=== PATIENT | male | born 1975 | race Caucasian/White ===

== ENCOUNTER 2017-03-01 01:10 | Emergency (ER) | payer MEDICAID, OTHER ==
[~2017-03-01] VITALS: Ht 182.9 cm; Wt 87.0 kg
[2017-03-01 01:14] VITALS: Ht 182.9 cm; Wt 87.0 kg
--- NOTE | 2017-03-01 04:10 | ERD ---
ER Documentation Chief Complaint Date/Time DATE: 03/01/17 TIME: 04:07 Chief Complaint right hand pain- punched the wall HPI 41-year-old male presents in emergency department for complaints of right hand pain after punching a wall tonight. Patient discussed the pain as throbbing pain , 6/10 scale, accompanied with swelling, noted some deformity in the dorsal aspect of the right hand. Patient denies any numbness or tingling. Patient has limitation of movement of the joint because of pain and swelling. Patient did not take any medications for pain. ROS All systems reviewed and are negative except as per history of present illness. Medications Home Meds Reported Medications [none] Unknown Strength No Conflict Check 03/01/17 Allergies Allergies: Coded Allergies: No Known Allergy (Unverified , 03/01/17) PMhx/Soc Medical and Surgical Hx: pt denies Medical Hx History of Surgery: Yes (hernia, appendectomy, liver ) Anesthesia Reaction: No Hx Alcohol Use: No Hx Substance Use: No Hx Tobacco Use: Yes (1/2 ppd) Smoking Status: Current every day smoker FmHx Family History: No coronary disease, No diabetes, No other Physical Exam Vitals Vital Signs Date Time Temp Pulse Resp B/P Pulse Ox O2 Delivery O2 Flow Rate FiO2 03/01/17 01:14 97.8 99 20 136/86 98 Physical Exam GENERAL: The patient is well developed and appropriate for usual state of health, in no apparent distress. CHEST: Clear to auscultation bilaterally. There are no rales, wheezes or rhonchi. HEART: Regular rate and rhythm. No murmurs, clicks, rubs or gallops. No S3 or S4. ABDOMEN: Soft, nontender and nondistended. Good bowel sounds. No rebound or guarding. No gross peritonitis. No gross organomegaly or masses. No Larkin sign or McBurney point tenderness. BACK: No midline or flank tenderness. EXTREMITIES: Tenderness on palpation on the dorsal aspect of the right hand, and swelling noted mostly on the second third and fourth metacarpal aspect. Noted ecchymosis. Limitation of movement of the joint because of the pain and swelling. Equal pulses bilaterally. Full range of motion of other joints of the body. Grossly neurovascularly intact. NEURO: Alert and oriented. Cranial nerves 2-12 intact. Motor strength in all 4 extremities with 5/5 strength. Sensation grossly intact. Normal speech and gait. SKIN: There is no apparent rash or petechia. The skin is warm and dry. HEMATOLOGIC AND LYMPHATIC: There is no evidence of excessive bruising or lymphedema. No gross cervical, axillary, or inguinal lymphadenopathy. Results 24 hrs ROCEDURE: RIGHT HAND - 3 VIEWS CLINICAL INDICATION: 41-year-old male with right hand pain following trauma. TECHNIQUE: AP, lateral and oblique views of the right hand were obtained. The images reviewed on a PACS workstation. COMPARISON: None. FINDINGS: The bones of the hand appear intact, with no evidence of fracture, dislocation, or subluxation. The joint spaces are preserved. Bone mineralization is within normal limits. No radiopaque foreign body is seen. There is a deformity within the mid right second metacarpal bone most likely from prior fracture. IMPRESSION: 1. No acute fracture or dislocation. 2. Old fracture deformity mid right second metacarpal bone. .Dionte Monroe MD, MD Date Time Electronically viewed and signed by .Dionte Monroe MD, on 03/01/2017 06:01 .M/ CC: CHRISSY WOLF NP After receiving patients xray report, an Kip wrap was applied on the patients r hand. After application of the Kip wrap, patient has intact sensation and circulation on distal area of the affected joint. Patient does not complain of numbness or tingling after application of the Kip wrap. Patient tolerated procedure well. Procedures/MDM Medical Decision Making: Patient's pain is most likely consistent with a contusion or a sprain. There is no suspicion for neurovascular compromise. Patient has intact sensation and circulation of the affected extremity. There is low suspicion for septic arthritis. Patient does not have any fever. Radiology exams of the affected area does not show any fracture or dislocation. Disposition: Home. Patient is given prescription for ibuprofen for pain , Tramadol for severe pain. Patient was advised to elevate the affected area and apply ice on affected area. Patient was advised that if symptoms are worse, numbness, tingling, high fever, unable to move joint, worsening symptoms, to return to emergency department immediately. Otherwise, patient is advised to follow up with the primary care doctor in 5-7 days for reevaluation of symptoms. Disclaimer: Inadvertent spelling and grammatical errors are likely due to EHR/ dictation software use and do not reflect on the overall quality of patient care. Also, please note that the electronic time recorded on this note does not necessarily reflect the actual time of the patient encounter. Departure Diagnosis: Primary Impression: Hand contusion Encounter type: initial encounter Laterality: right Qualified Code: S60.221A - Contusion of right hand, initial encounter Condition: Stable Patient Instructions: Contusion, Hand Additional Instructions: Patient is given prescription for ibuprofen for pain ,Tramadol for severe pain. Patient was advised to elevate the affected area and apply ice on affected area. Patient was advised that if symptoms are worse, numbness, tingling, high fever, unable to move joint, worsening symptoms, to return to emergency department immediately. Otherwise, patient is advised to follow up with the primary care doctor in 5-7 days for reevaluation of symptoms. CHRISSY WOLF NP Mar 01, 2017 04:10
--- NOTE | 2017-03-01 06:02 | RADRPT ---
PROCEDURE: RIGHT HAND - 3 VIEWS CLINICAL INDICATION: 41-year-old male with right hand pain following trauma. TECHNIQUE: AP, lateral and oblique views of the right hand were obtained. The images reviewed on a PACS workstation. COMPARISON: None. FINDINGS: The bones of the hand appear intact, with no evidence of fracture, dislocation, or subluxation. The joint spaces are preserved. Bone mineralization is within normal limits. No radiopaque foreign body is seen. There is a deformity within the mid right second metacarpal bone most likely from prior fr acture. IMPRESSION: 1. No acute fracture or dislocation. 2. Old fracture deformity mid right second metacarpal bone. .Dionte Monroe MD, MD Date Time Electronically viewed and signed by .Dionte Monroe MD, on 03/01/2017 06:01 .[place]ie
[2017-03-01] MEDS ORDERED: TRAM50TA2 PO (06:07)
[2017-03-01] MEDS ORDERED: IBUP-1542 PO (06:07)
[2017-03-01 06:11] VITALS: BP 137/96; PULSE 80
== END 2017-03-01 06:13 | disposition home or self-care (01) ==
LOC: FTE 01:10
DX: S60.221A Contusion of right hand, initial encounter (principal); F17.210 Nicotine dependence, cigarettes, uncomplicated; W22.8XXA Striking against or struck by other objects, initial encounter; Y92.9 Unspecified place or not applicable
CPT/HCPCS: 73130; Z7502